=== PATIENT | female | born 1985 | race African-American/Black ===

== ENCOUNTER 2016-04-15 16:41 | Emergency (ER) | payer MEDICAID ==
[~2016-04-15] VITALS: Ht 160 cm; Wt 53.0 kg
[~2016-04-15 16:41] MED LIST: MECL25 PO; PROM25SU8 PO
[2016-04-15 16:43] VITALS: BP 117/72; PULSE 103; RESP 20; TEMP 98.7; O2SAT 100
--- NOTE | 2016-04-15 20:46 | PD ---
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 She complains of pelvic pain currently rated as mild. She denies any fevers, vomiting, or any other symptoms. Modifying Factors: None Associated Signs & Symptoms: , vaginal bleeding Risk Factors: None PFSH Past Medical History Hx Anticoagulant Therapy: No Cardiovascular Problems: No Chemotherapy: No Cerebrovascular Accident: No Diabetes: No Diminished Hearing: No Respiratory: No Immunizations Current: Yes ?: Menopausal: No : 3 Para: 3 Miscarriage: 0 : 0 Ovarian Cysts: Yes (R-side before 2009 ) Past Surgical History Section: Yes (three c sections, 2009, 2010, 2013 ) Gynecologic Surgery: Yes (C-SEC X 3) Social History Alcohol Use: Yes (socially) Tobacco Use: No Substance Use: No Allergies-Medications (Allergen,Severity, Reaction): Coded Allergies: No Known Allergies (Verified , 04/15/16) Reported Meds & Prescriptions Reported Meds & Active Scripts Active Review of Systems Except as stated in HPI: all other systems reviewed are Neg Physical Exam Narrative GENERAL: Well-nourished, well-developed young -[place] female patient in no acute distress. SKIN: Warm and dry. HEAD: Normocephalic. EYES: No scleral icterus. No injection or drainage. NECK: Supple, trachea midline. CARDIOVASCULAR: Regular rate and rhythm without murmurs, gallops, or rubs. RESPIRATORY: Breath sounds equal bilaterally. No accessory muscle use. GASTROINTESTINAL: Abdomen soft, mild pelvic tenderness without guarding or rebound, nondistended. GENITOURINARY: Normal external genitalia without lesions or erythema. Vaginal vault with small amount of blood with no significant drainage. Cervical os was closed without drainage. No cervical motion tenderness. Uterus nontender. Bilateral adnexa nontender without masses. MUSCULOSKELETAL: No cyanosis, or edema. BACK: Nontender without obvious deformity. No CVA tenderness. Data Data Last Documented VS Vital Signs Date Time Temp Pulse Resp B/P Pulse Ox O2 Delivery O2 Flow Rate FiO2 3/7/17 20:43 65 16 04/15/16 16:43 98.7 117/72 100 Orders Beta Hcg (Quant/Titer) (04/15/16 20:30) Complete Blood Count With Diff (04/15/16 20:30) Basic Metabolic Panel (Bmp) (04/15/16 20:30) Complete Rh (04/15/16 20:30) Us Pelvis (Ques Pr/Ect)W Trans (04/15/16 21:47) Labs Laboratory Tests Test 04/15/16 21:00 White Blood Count 8.1 TH/MM3 Red Blood Count 4.01 MIL/MM3 Hemoglobin 12.4 GM/DL Hematocrit 36.6 % Mean Corpuscular Volume 91.4 FL Mean Corpuscular Hemoglobin 31.0 PG Mean Corpuscular Hemoglobin 33.9 % Concent Red Cell Distribution Width 12.3 % Platelet Count 283 TH/MM3 Mean Platelet Volume 6.6 FL Neutrophils (%) (Auto) 56.2 % Lymphocytes (%) (Auto) 36.0 % Monocytes (%) (Auto) 6.0 % Eosinophils (%) (Auto) 1.0 % Basophils (%) (Auto) 0.8 % Neutrophils # (Auto) 4.5 TH/MM3 Lymphocytes # (Auto) 2.9 TH/MM3 Monocytes # (Auto) 0.5 TH/MM3 Eosinophils # (Auto) 0.1 TH/MM3 Basophils # (Auto) 0.1 TH/MM3 CBC Comment DIFF FINAL Differential Comment Sodium Level 137 MEQ/L Potassium Level 3.7 MEQ/L Chloride Level 106 MEQ/L Carbon Dioxide Level 23.2 MEQ/L Anion Gap 8 MEQ/L Blood Urea Nitrogen 9 MG/DL Creatinine 0.63 MG/DL Estimat Glomerular Filtration 135 ML/MIN Rate Random Glucose 81 MG/DL Calcium Level 8.8 MG/DL Human Chorionic Gonadotropin, 58084 MIU/ML Quant Blood Type B POSITIVE Rho(D) Type POSITIVE MDM Medical Decision Making Medical Screen Exam Complete: Yes Emergency Medical Condition: Yes Medical Record Reviewed: Yes Interpretation(s) Laboratory Tests Test 04/15/16 21:00 Mean Platelet Volume 6.6 FL (7.0-11.0) Human Chorionic Gonadotropin, 79347 MIU/ML Quant (0-5) Differential Diagnosis Vaginal bleeding, threatened AB versus ectopic versus menses Narrative Course Ultrasound shows IUP. Os is closed. At this point, my plan would be to release her with close follow-up in 2 days with [facility]. Return for any worsening in bleeding, or new symptoms as needed. Diagnosis Primary Impression: THREATENED Disposition: 01 DISCHARGE HOME Condition: Stable Sarmad Cervantes MD Apr 15, 2016 20:46
[2016-04-15 21:17] LABS: AUTOMATED NEUTROPHIL # 4.5 TH/MM3 (1.8-7.7); BASOPHIL # 0.1 TH/MM3 (0-0.2); BASOPHIL % 0.8 % (0.0-2.0); EOSINOPHIL # 0.1 TH/MM3 (0-0.4); HEMATOCRIT 36.6 % (35.0-46.0); HEMO FLAGS DIFF FINAL; LYMPHOCYTE # 2.9 TH/MM3 (1.0-4.8); MEAN CELL VOLUME 91.4 FL (80.0-100.0); MEAN CORPUSCULAR HGB CONC 33.9 % (32.0-36.0); NEUT % 56.2 % (16.0-70.0); PLATELET COUNT 283 TH/MM3 (150-450); RED BLOOD COUNT 4.01 MIL/MM3 (4.00-5.30); RED CELL DISTRIBUTION WIDTH 12.3 % (11.6-17.2); WHITE BLOOD COUNT 8.1 TH/MM3 (4.0-11.0)
[2016-04-15 21:29] LABS: BICARBONATE 23.2 MEQ/L (21.0-32.0); POTASSIUM 3.7 MEQ/L (3.5-5.1)
--- NOTE | 2016-04-16 00:36 | RADRPT ---
EXAM DATE/TIME: 04/15/2016 22:41 [facility] COMPARISON: No previous studies available for comparison. INDICATIONS : Pelvic pain and bleeding. LAB(S): Beta-hC,987 MEDICAL HISTORY : . Ovarain cysts. SURGICAL HISTORY : section. ENCOUNTER: Initial ACUITY: 1 week PAIN SCORE: 7/10 LOCATION: Bilateral pelvis MEASUREMENTS: UTERUS: 10.5 x 6.1 x 5.7 cm ENDOMETRIAL STRIPE: >20 mm RIGHT OVARY: 2.5 x 2.6 x 2.0 cm LEFT OVARY: 2.9 x 1.5 x 1.6 cm FINDINGS: UTERUS: The myometrium has homogeneous echotexture without mass. Complex appearance of the endometrial canal with 2 discrete fluid collections. The smaller sac near the fundus measures 2.0 x 1.3 x 1.0 cm and d oes appear to contain a pole with a crown-rump length of 2.4 mm corresponding to a gestational age of 5 weeks and 5 days. heart motions are identified but are somewhat bradycardic at 90 beat s per minute. A yolk sac is present. The larger sac further down the endometrial canal is actually la rger measuring 3.1 x 3.6 x 1.9 cm and appears to contain internal debris. No pole identified. T his could represent a blighted twin or old hemorrhage in the endometrial canal. A crescentic area adj acent to the viable gestational sac in the fundus measures 1.4 x 0.3 x 0.8 cm at believe represents a small subchorionic hemorrhage. RIGHT OVARY: Ovary contains no mass or significant cystic lesion. LEFT OVARY: Left ovary contains no mass or areas a benign-appearing 1.3 cm cyst MISCELLANEOUS: Free fluid in the cul-de-sac. CONCLUSION: 1. Very complex appearance of the endometrial canal. There are 2 discrete fluid collections. 2. The smaller collection in the fundus I believe represents a true gestational sac and contains a 2. 4 mm viable pole corresponding to a gestational age of 5 weeks and 5 days. 3. There is a larger collection further down the endometrial canal measuring 3.1 x 3.6 cm with comple x central echoes possibly representing a blighted twin or old hemorrhage. 4. Small crescentic area adjacent to the smaller, viable sac in the fundus measuring 1.4 x 0.3 x 0.8 cm characteristic of a small subchorionic hemorrhage. 5. Free fluid in the cul-de-sac. 6. Benign-appearing 1.3 cm cyst in the left ovary. Jacob Holguin MD on April 16, 2016 at 0:26 Board Certified Radiologist. This report was verified electronically.
== END 2016-04-16 00:54 | disposition home or self-care (01) ==
LOC: NEPE 16:41
DX: O20.0 Threatened abortion (principal)
CPT/HCPCS: 76700; 76817; 80048; 84702; 85025; 86901

== ENCOUNTER 2016-09-13 09:40 | Emergency (ER) | payer MEDICAID ==
[~2016-09-13] VITALS: Ht 160 cm; Wt 57.2 kg
--- NOTE | 2016-09-13 10:29 | PD ---
HPI Chief Complaint Abdominal pain Date Seen: Sep 13, 2016 Travel History International Travel<30 Days: No Contact w/Intl Traveler<30Days: No Known Affected Area: No History of Present Illness HPI Patient 30-year-old black female G for P3 previous 3 at [address] Aguayo for care. She presents combining of lower abdominal pain over the last day or so. This getting worse this morning so she came in by AAA was okay. She denies bleeding or ruptured membranes. Baby is active. The heart rate tracing is reactive for 28 weeks. No contractions seen. Para: 3 : 4 History Obstetric History Obstetric History 3 previous C-sections Past Surgical History Narrative Surgical 3 C-sections Social History Alcohol Use: No Tobacco Use: No Substance Abuse: No Allergies-Medications (Allergen,Severity, Reaction): Coded Allergies: No Known Allergies (Verified , 04/15/16) Review of Systems General / Constitutional: No: Fever, Weight Gain, Chills, Other Eyes: No: Diploplia, Blurred Vision, Visual changes, Pain, Photophobia HENT: No: Headaches, Vertigo, Lightheadedness Cardiovascular: No: Irregular Rhythm, Chest Pain or Discomfort, Palpitations, Tachycardia, Syncope, Varicosities, Edema, Cyanosis Respiratory: No: Cough, Short of Breath, Other Gastrointestinal: Abdominal Pain, No: Nausea, Vomiting, Diarrhea Genitourinary: No: Decreased Urinary Output, Oliguria Musculoskeletal: No: Limited ROM, Weakness, Cramping, Edema, Pain Skin: No Rash, No Itching, No Dryness, No Lumps, No Change in Pigmentation, No Change in Nails, No Alopecia, No Lesions Neurologic: No: Weakness, Dizziness, Syncope, Focal Abnormalities, Coordination Problem, Headache, Slurred Speech, Seizures Psychiatric: No: Depression, Suicidal Ideations, Homicidal Ideation Endocrine: No: Heat Intolerance, Cold Intolerance, Polydipsia, Polyuria, Other Physical Exam Narrative GENERAL: Well-nourished, well-developed patient. SKIN: Warm and dry. HEAD: Normocephalic and atraumatic. EYES: No scleral icterus. No injection or drainage. ENT: No nasal drainage noted. Mucous membranes pink. Airway patent. NECK: Supple, trachea midline. No JVD. CARDIOVASCULAR: Regular rate and rhythm without murmurs, gallops, or rubs. RESPIRATORY: Breath sounds equal bilaterally. No accessory muscle use. BREASTS: Bilateral exam showed no masses , no retractions, no nipple discharge. ABDOMEN/GI: Abdomen soft, minimally-tender, bowel sounds present, no rebound, no guarding Gravid to [-28] weeks size Fundal Height: [27-] GENITOURINARY: External Genitalia: intact and normal in appearance BUS glands: [-] Cervix: [-Closed] Dilatation: [Closed-] Effacement: [-] Thick Station: [-3] Membranes: [intact ] Uterine Contractions: [none-] FHT's: Category: [-1] Baseline: [133-] Reactive: [yes-] Variability: [mod-] Decels: [none-] EXTREMITIES: No cyanosis or edema. BACK: Nontender without obvious deformity. No CVA tenderness. NEUROLOGICAL: Awake and alert. Motor and sensory grossly within normal limits. Five out of 5 muscle strength in all muscle groups. Normal speech. Data Data Labs Urine dip is negative for UTI protein and ketones MDM Interpretation(s) Patient is a 30-year-old black female previous 3 at 28 weeks tomorrow presents with lower abdominal pain. No leakage of fluid or bleeding. Heart rate tracing is reactive and no contractions seen, it UTI ruled out with urine dip Impression --- musculoskeletal pain or adhesive discomfort from previous C- sections and overactivity Plan Plan the patient to increase her bed rest at home. Increase oral fluids. Use Tylenol liberally for pain. Heating pad or hot bath for comfort. She is to see Dr. Aguayo on Thursday in 48 hours next visit. She is to be at increased bedrest between now and then and follow-up with her OB provider Diagnosis Diagnosis: Primary Impression: Abdominal pain affecting , antepartum Additional Impression: Previous section Disposition: 01 DISCHARGE HOME Condition: Stable Antonio Florez II, MD Sep 13, 2016 10:29
== END 2016-09-13 10:39 | disposition home or self-care (01) ==
LOC: HOBED 09:40
DX: O26.899 Other specified pregnancy related conditions, unspecified trimester (principal); R10.30 Lower abdominal pain, unspecified; Z3A.28 28 weeks gestation of pregnancy
CPT/HCPCS: 99282